=== PATIENT | female | born 1970 | race African-American/Black ===

== ENCOUNTER 2017-04-08 18:07 | Emergency (ER) | payer OTHER ==
[~2017-04-08] VITALS: Ht 172.7 cm; Wt 170.0 kg
[~2017-04-08 18:07] MED LIST: ASPI-1073 PO; ATENOLOL PO; BACI120O TP; BENA5TAB3 PO; FERR325C PO; IRON18TA PO; LEVO500T15 PO; METFORMIN PO
[2017-04-08] MEDS ORDERED: SODIUM CHLORIDE 0.9% 1,000 ML IV ONE (21:48)
[2017-04-08] MEDS ORDERED: ONDANSETRON HCL 4MG/2ML VIAL IV STA (21:48)
[2017-04-08] MEDS ORDERED: MORPHINE SULFATE 4 MG/ML CPJ (NOT FOR IM USE) IV STA (21:48)
[2017-04-08] MEDS ORDERED: KETOROLAC 30MG/ML VIAL IV ONE (22:00)
[2017-04-08 22:32] LABS: BASOPHILS % 0.5 % (0.0-2.0); EOSINOPHILS % 3.4 % (0.0-5.0); HEMATOCRIT. 36.3 % (36.0-48.0); HEMOGLOBIN. 12.2 g/dL (12.0-16.0); MEAN CORPUSCULAR HEMOGLOBIN 31.2 pg (28.0-32.0); MEAN CORPUSCULAR VOLUME 92.5 fL (81.0-99.0); MEAN PLATELET VOLUME 8.4 fl (7.4-10.4); MONOCYTES % 6.9 % (2.0-8.0); NEUTROPHILS % 49.2 % (40.0-76.0); PLATELET 234 x1000/uL (130-400); RED BLOOD CELL COUNT 3.92 mill/uL (4.2-5.4); RED CELL DISTRIBUTION WIDTH 13.3 % (11.6-14.6)
[2017-04-08 22:34] LABS: CLARITY URINE CLEAR (CLEAR); COLOR URINE YELLOW (YELLOW); GLUCOSE URINE NEGATIVE (NEGATIVE); KETONES URINE NEGATIVE (NEGATIVE); LEUKOCYTE ESTERASE URINE 1+ (NEGATIVE); NITRITE URINE NEGATIVE (NEGATIVE); OCCULT BLOOD URINE 3+ (NEGATIVE); PH URINE 6.5 (4.5-8.0); PROTEIN URINE NEGATIVE (NEGATIVE); SPECIFIC GRAVITY URINE 1.021 (1.005-1.030)
[2017-04-08 22:35] LABS: CHLORIDE 102 mEq/L (98-107)
[2017-04-08 22:37] LABS: INR 1.1; PARTIAL THROMBOPLASTIN TIME 24.6 sec (24.0-34.0); PROTHROMBIN TIME 11.3 sec
[2017-04-08 22:40] LABS: CARBON DIOXIDE 29 mEq/L (21-32); HCG SCREEN NEGATIVE
[2017-04-08] MEDS ORDERED: CEFTRIAXONE 1 G PREMIX 50 ML IV ONE (23:15)
[2017-04-09 00:53] VITALS: BP 125/73
== END 2017-04-09 01:02 | disposition home or self-care (01) ==
LOC: ER 21:33
DX: N39.0 Urinary tract infection, site not specified (principal); N83.209 Unspecified ovarian cyst, unspecified side; D25.9 Leiomyoma of uterus, unspecified; E11.9 Type 2 diabetes mellitus without complications; I10 Essential (primary) hypertension; E66.01 Morbid (severe) obesity due to excess calories; F12.10 Cannabis abuse, uncomplicated; Z79.82 Long term (current) use of aspirin
CPT/HCPCS: 36415; 76830; 76856; 80048; 81001; 84703; 85025; 85610; 85730; 87086; 96361; 96365; 96375; 99285; J0696; J1885; J2270; J2405; J7030; Z7610